=== PATIENT | female | born 1990 | race African-American/Black ===

== ENCOUNTER 2017-10-01 00:01 | Emergency (ER) | payer OTHER ==
[~2017-10-01] VITALS: Ht 162.6 cm; Wt 154.5 kg
[2017-10-01 00:08] VITALS: TEMP 99
[2017-10-01 01:03] LABS: COLLECTION METHOD CLEAN CATCH
[2017-10-01 01:04] LABS: BASO # 0.1 (0.0-0.2); BASO % 0.7 % (0.0-2.0); EOS # 0.2 (0.0-0.7); EOS % 1.5 % (0-4.0); GRAN # 7.5 (1.4-6.5); GRAN % 60.8 % (42.2-75.2); HEMATOCRIT 36.1 % (37.0-47.0); HEMOGLOBIN 12.5 g/dl (12.5-16.0); LYMPH # 3.9 (1.2-3.4); LYMPH % 31.8 % (20.0-51.0); MEAN CELL VOLUME 84 fl (80.0-100.0); MEAN CORPUSCULAR HEMOGLOBIN 29 pg (27.0-31.0); MEAN CORPUSCULAR HGB CONC 35 g/dl (33.0-37.0); MEAN PLATELET VOLUME 10.9 fl (7.4-10.4); MONO # 0.6 (0.1-0.6); MONO % 4.8 % (1.7-9.3); PLATELET COUNT 252 K/mm3 (130-400); RED BLOOD COUNT 4.28 M/mm3 (4.10-5.30); REDCELL DISTRIBUTION WIDTH-CV 13.2 % (11.5-14.5)
[2017-10-01 01:09] LABS: MUCOUS Present /lpf; PH 5 (5-8); SQUAMOUS EPITHELIAL 0-2 /hpf; URINE APPEARANCE Clear; URINE BACTERIA None Seen /hpf; URINE BILIRUBIN Negative (NEGATIVE); URINE BLOOD 3+ (NEGATIVE); URINE COLOR Yellow; URINE GLUCOSE Negative (NEGATIVE); URINE KETONE Negative (NEGATIVE); URINE LEUKOCYTE ESTERASE Negative (NEGATIVE); URINE NITRATE Negative (NEGATIVE); URINE PROTEIN(semi-quant) Negative (NEGATIVE); URINE RBC 0-2 /hpf; URINE UROBILINOGEN Negative (NEGATIVE)
[2017-10-01 01:19] LABS: BILIRUBIN,TOTAL 0.3 mg/dL (0.0-1.0); C-REACTIVE PROTEIN 2.2 mg/dL (0.0-0.9); CALCIUM 9.7 mg/dL (8.4-10.2); CREATININE, serum 0.72 mg/dL (0.52-1.25); POTASSIUM 3.7 mmol/L (3.4-5.0); TOTAL PROTEIN 7.8 gm/dL (6.4-8.2)
[2017-10-01 02:15] VITALS: BP 128/78; PULSE 78
== END 2017-10-01 02:19 | disposition home or self-care (01) ==
LOC: COL.ER 00:01 → EDBD 00:02 → COL.ER 02:19
PROVIDERS: Physician Assistant
DX: O46.91 Antepartum hemorrhage, unspecified, first trimester (principal); Z98.890 Other specified postprocedural states

== ENCOUNTER 2017-11-05 10:35 | Day surgery (SDC) | payer OTHER ==
[~2017-11-05] VITALS: Ht 162.6 cm; Wt 155.9 kg
[2017-11-05] MEDS ORDERED: SYNTHROID0.1 MG/TAB PO (10:46)
[2017-11-05] MEDS ORDERED: REGLAN 5MG T5 MG/TAB PO (11:00)
[2017-11-05 11:37] LABS: BASO # 0.1 (0.0-0.2); BASO % 0.6 % (0.0-2.0); EOS # 0.1 (0.0-0.7); EOS % 0.9 % (0-4.0); GRAN # 6.7 (1.4-6.5); GRAN % 63.7 % (42.2-75.2); HEMATOCRIT 30.3 % (37.0-47.0); HEMOGLOBIN 10.1 g/dl (12.5-16.0); LYMPH # 3.2 (1.2-3.4); LYMPH % 30.4 % (20.0-51.0); MEAN CELL VOLUME 86 fl (80.0-100.0); MEAN CORPUSCULAR HEMOGLOBIN 29 pg (27.0-31.0); MEAN CORPUSCULAR HGB CONC 33 g/dl (33.0-37.0); MEAN PLATELET VOLUME 11.2 fl (7.4-10.4); MONO # 0.4 (0.1-0.6); MONO % 4.1 % (1.7-9.3); PLATELET COUNT 276 K/mm3 (130-400); RED BLOOD COUNT 3.53 M/mm3 (4.10-5.30); REDCELL DISTRIBUTION WIDTH-CV 13.2 % (11.5-14.5)
[2017-11-05 13:48] VITALS: BP 121/69; PULSE 107; TEMP 98.6
[2017-11-05] MEDS ORDERED: IBU600 MG PO (13:49)
[2017-11-05] MEDS ORDERED: PERCOCET 325 MG1 TA2 PO (13:49)
[2017-11-05 14:00] VITALS: BP 123/67; PULSE 94
[2017-11-05 14:15] VITALS: BP 129/88; PULSE 90
[2017-11-05 14:30] VITALS: BP 133/73; PULSE 86
== END 2017-11-05 15:16 | disposition home or self-care (01) ==
LOC: COL.ER 10:35 → SDCO 11:59
PROVIDERS: Physician Assistant
DX: O03.4 Incomplete spontaneous abortion without complication (principal)
CPT/HCPCS: J0690; J1885; J2250; J2405; J2704; J3010; J7030

== ENCOUNTER → 2018-01-08 | Outpatient (CLI) | payer OTHER ==
[~2018-01-08] MED LIST: IBU600 MG PO; PERCOCET 325 MG1 TA2 PO; REGLAN 5MG T5 MG/TAB PO; SYNTHROID0.1 MG/TAB PO
== END ==
LOC: COL.LAB 16:49
DX: E03.9 Hypothyroidism, unspecified (principal)